=== PATIENT | female | born 1975 | race Caucasian/White ===

== ENCOUNTER 2017-04-19 05:30 | Emergency (ER) | payer MEDICAID ==
[~2017-04-19] VITALS: Ht 170.2 cm; Wt 65.3 kg
[~2017-04-19 05:30] MED LIST: CLON1TAB3 PO; DOXE10CA29 PO; ESCI20TA PO; IBUP-1773 PO; fLEXERIL
[2017-04-19] MEDS ORDERED: IBUPROFEN 800 MG (MOTRIN) TAB PO STA (05:40)
[2017-04-19] MEDS ORDERED: TRIM/SULFAMETH 160/800 (SEPTRA DS) TAB PO ONE (05:45)
[2017-04-19] MEDS ORDERED: LIDOCAINE 2% 20 ML (XYLOCAINE) VIAL INJ ONE (05:45)
--- NOTE | 2017-04-19 05:46 | ED Upper Extremity ---
General Chief Complaint: Upper Extremity Stated Complaint: LEFT THUMB PAIN Source: patient Exam Limitations: no limitations History of Present Illness Time seen by provider: 05:36 Initial Comments Patient presents the ER by private conveyance with a chief complaint of a left thumb swelling tenderness and pain with a scant amount of drainage. She says she either burned it or slammed it while barbecuing Tuesday. But it has progressively gotten bigger and more painful. It now has an area of white under the thumbnail and she says she tried to express something out of a but did not have a needle. She is not having any allergies. She has no nausea or fever or chills. She has full use of the thumb and can feel but is having quite a bit of pain. It has responded only marginally well to Tylenol. Allergies and Home Medications Allergies Coded Allergies: No Known Drug Allergies (Unverified , 06/14/15) Home Medications Clonazepam 1 Mg Tablet, 1 MG PO BID, (Reported) Doxepin HCl 10 Mg Capsule, 10 MG PO at bedtime, (Reported) Escitalopram Oxalate 20 Mg Tablet, 20 MG PO DAILY, (Reported) Ibuprofen 600 Mg Tablet, 600 MG PO Q6H PRN for PAIN, #100 Prescribed by: TAZ OLIVO on 06/24/16 1242 [fLEXERIL] , 10 BID, #60 Prescribed by: TAZ OLIVO on 06/24/16 1242 Constitutional: No chills, No diaphoresis, No fever Gastrointestinal: No nausea, No vomiting Musculoskeletal: No back pain, No joint pain Skin: see HPI, change in color, change in hair/nails, No pruritus, No rash Past Ilxnqoe-Yspdpv-Vhwtnk Hx Patient Social History Alcohol Use: Denies Use Recreational Drug Use: No Smoking Status: Current Everyday Smoker Type Used: Cigarettes (1 pack per day) Recent Foreign Travel: No Contact w/Someone Who Travel: No Recent Hopitalizations: No Immunizations Up To Date Tetanus Booster (TDap): Unknown Seasonal Allergies Seasonal Allergies: No Surgeries HX Surgeries: Yes Surgeries: Tubal Ligation Respiratory Hx Respiratory Disorders: Yes Respiratory Disorders: Chronic Bronchitis Cardiovascular Hx Cardiac Disorders: Yes Neurological Hx Neurological Disorders: No Reproductive System Hx Reproductive Disorders: No Sexually Transmitted Disease: No HIV/AIDS: No Genitourinary Hx Genitourinary Disorders: No Gastrointestinal Hx Gastrointestinal Disorders: No Musculoskeletal Hx Musculoskeletal Disorders: No Endocrine Hx Endocrine Disorders: No HEENT HX ENT Disorders: Yes Hearing Impairment: Deaf Cancer Hx Cancer: No Psychosocial Hx Psychiatric Problems: Yes Behavioral Health Disorders: Anxiety, Depression Integumentary HX Skin/Integumentary Disorder: No Blood Transfusions Hx Blood Disorders: No Adverse Reaction to a Blood Tr: No Physical Exam Vital Signs Vital Sign - Last 12Hours 04/19/17 05:34 Temp 96.3 Pulse 88 Resp 20 B/P (MAP) 134/92 Pulse Ox 97 O2 Delivery Room Air Capillary Refill : Less than 3 seconds General Appearance: WD/WN, no apparent distress HEENT: PERRL/EOMI, pharynx normal Wrist: Yes normal inspection, Yes non-tender Hand: normal inspection, non-tender, nail injury (left thumb with medial paronychia, erythema, edema, tenderness to palpation.), soft tissue tenderness, swelling Neurologic/Tendon: normal sensation, normal motor functions, normal tendon functions, responds to pain Neurologic/Psychiatric: no motor/sensory deficits, alert, oriented x 3 I&D : Site: left first digit medial side of the nail Blade Size: scissors and hemostat I & D Procedure: betadine prep, sterile drapes applied, sterile dressing applied, Wound Packing (thin layer of Vaseline) Progress Risk benefits and alternatives were explained the patient. She accepted the potential consequences. She did have bleeding, infection or need for a second procedure. She was cleaned with Betadine followed by alcohol and then 3 cc of 2 % lidocaine without epinephrine were instilled to the lateral and medial side of the thumb on the left hand. Essentially she was numb the thumb was draped out and sterile dressings in the usual fashion and a sterile hemostat was introduced under the medial side of the thumbnail. There is an immediate return of putrid smelling white purulent drainage and the nail was lifted from the bed and away from the skin. He says is within used to make a incision back to the base of the nail and the nail was removed without pain or discomfort the patient. The wound was then cleaned and irrigated with 50 cc of chlorhexidine soap water. The wound was then lightly dressed with Vaseline and a Band-Aid in sterile fashion. There is no bleeding at the time and the patient was very comfortable. Patient tolerated procedure very well. Progress/Results/Core Measures Results/Orders My Orders Orders - JORDAN LUQUE Ibuprofen Tablet (Motrin Tablet) (04/19/17 05:40) Lidocaine 2% Injection 20 Ml (Xylocaine (04/19/17 05:45) Sulfamethoxazole/Trimet Ds Tab (Bactrim (04/19/17 05:45) Medications Given in ED Current Medications Medications Dose Ordered Sig/Jung Route Start Time Stop Time Status Last Admin Dose Admin Lidocaine HCl 20 ml ONCE ONCE INJ 04/19/17 05:45 04/19/17 05:46 DC 04/19/17 05:50 20 ML Trimethoprim/ Sulfamethoxazole 1 ea ONCE ONCE PO 04/19/17 05:45 04/19/17 05:46 DC 04/19/17 05:50 1 EA Vital Signs/I&O Vital Sign - Last 12Hours 04/19/17 05:34 Temp 96.3 Pulse 88 Resp 20 B/P (MAP) 134/92 Pulse Ox 97 O2 Delivery Room Air Departure Impression Impression: Primary Impression: Paronychia of finger of left hand Disposition: HOME, SELF-CARE Condition: Improved Departure-Patient Inst. Decision time for Depature: 06:42 Referrals: [facility] (PCP/Family) Primary Care Physician Patient Instructions: Paronychia (DC) Add. Discharge Instructions: The wound has now been open and allowed to drain so the site should start healing. You'll be given antibiotics to keep the infection from spreading. Take them twice daily with food. If you're having pain you should take the Naprosyn one capsule twice daily. If you still have pain you can take Tylenol 1000 mg every 8 hours as needed. You can also apply ice for 20 minutes 4 times a day. You should also elevate the site so the swelling will go down and you can wrap it gently to give some compression to keep the swelling off. If you start having worsening reddening of the skin or increasing pain or you develop a fever or nausea then you should return to the ER or to your primary care physician which ever is more appropriate at the time. Take the antibiotics to completion. Clean the site with gentle soap and water and apply a very thin layer of Vaseline under a Band-Aid. The numbing action of the lidocaine will wear off in 45 minutes to an hour. All discharge instructions reviewed with patient and/or family. Voiced understanding. Scripts Naproxen (Naprosyn) 500 Mg Tablet 500 MG PO BID for 7 Days, #14 TAB 0 Refills Prov: JORDAN LUQUE 04/19/17 Sulfamethoxazole/Trimethoprim (Bactrim Ds Tablet) 1 Each Tablet 1 EACH PO BID for 10 Days, #20 TAB 0 Refills Prov: JORDAN LUQUE 04/19/17 Copy Copies To 1: CHARIS BULLOCK TITUS J Apr 19, 2017 05:46
[2017-04-19] MEDS ORDERED: SULF1TAB35 PO (06:47)
[2017-04-19] MEDS ORDERED: NAPR500T PO (06:47)
[2017-04-19] MEDS ORDERED: TETANUS,DIPTH,PERTUSS P/F (BOOSTRIX) 0.5 ML VIAL IM ONE (07:00)
[2017-04-19 07:02] VITALS: BP 0/0
== END 2017-04-19 07:02 | disposition home or self-care (01) ==
LOC: EDUNIT# 05:30 → ER 05:33
DX: L03.012 Cellulitis of left finger (principal); F41.9 Anxiety disorder, unspecified; F32.9 Major depressive disorder, single episode, unspecified; F17.210 Nicotine dependence, cigarettes, uncomplicated; Z98.51 Tubal ligation status
CPT/HCPCS: 90471; 90715; 99284